=== PATIENT | male | born 1995 | race Caucasian/White ===

== ENCOUNTER 2020-11-26 09:48 | Emergency (ER) | payer MEDICAID ==
[~2020-11-26] VITALS: Ht 188 cm; Wt 132.4 kg
--- NOTE | 2020-11-26 09:54 | NUR ---
Dr Knight at the bedside for MSE. Pt arrived in Lt ankle paramedical aide immoblizer.
[2020-11-26] MEDS ORDERED: MORPHINE SULFATE 4 MG/1 ML DISP.SYRIN ONE (09:57)
[2020-11-26] MEDS ORDERED: MORPHINE SULFATE 2 MG/1 ML DISP.SYRIN ONE (09:58)
[2020-11-26] MEDS ORDERED: KETAMINE HCL 500 MG/10 ML INJ ONE (09:59)
[2020-11-26] MEDS ORDERED: MORPHINE SULFATE 4 MG/1 ML DISP.SYRIN IV ONE (10:45)
[2020-11-26] MEDS ORDERED: FENTANYL CITRATE 100 MCG/2 ML AMPUL ONE (11:18)
--- NOTE | 2020-11-26 11:40 | NUR ---
Pt is awake a/o x4 and verblly responsive, able to move 4 exterimities.
--- NOTE | 2020-11-26 11:44 | NUR ---
Pt placed on Lt short leg & sugar tongue fiberglass splint per DR Antonia long.
--- NOTE | 2020-11-26 11:55 | NUR ---
Pt states minimal pain 1-2/10 able to move all ext. All pulses palpable on LLE.
[2020-11-26] MEDS ORDERED: FENTANYL CITRATE 100 MCG/2 ML AMPUL IV ONE (12:15)
[2020-11-26] MEDS ORDERED: KETAMINE HCL 500 MG/10 ML INJ IV ONE (12:15)
[2020-11-26] MEDS ORDERED: HYDR-3972 PO (12:49)
[2020-11-26] MEDS ORDERED: IBUP-1957 PO (12:52)
--- NOTE | 2020-11-26 13:10 | NUR ---
Crutches dispensed. Pt instructed on proper use of crutches. Patient able to demonstrate correct use of crutches.
[2020-11-26 13:22] VITALS: BP 121/70
--- NOTE | 2020-11-26 13:22 | NUR ---
IV removed. Catheter intact and site benign. Pressure and 4x4 gauze applied to site. No bleeding noted.
--- NOTE | 2020-11-26 13:24 | NUR ---
Patient discharged to home in stable condition. Written and verbal after care instructions given. Patient verbalizes understanding of instructions. Stressed follow up or return to ER for worsening s/s.
== END 2020-11-26 13:25 | disposition home or self-care (01) ==
LOC: ER 09:48
DX: S82.832A Other fracture of upper and lower end of left fibula, initial encounter for closed fracture (principal); X50.9XXA Other and unspecified overexertion or strenuous movements or postures, initial encounter; Y93.79 Activity, other specified sports and athletics; Y92.838 Other recreation area as the place of occurrence of the external cause; Y99.8 Other external cause status; S93.05XA Dislocation of left ankle joint, initial encounter; Z87.81 Personal history of (healed) traumatic fracture; R03.0 Elevated blood-pressure reading, without diagnosis of hypertension
CPT/HCPCS: 27788; 73610 ×2; 73630; 96374; 99152; 99285; J2270 ×2; J3010; J3490; G0500